=== PATIENT | male | born 1985 | race Asian ===

== ENCOUNTER 2019-04-25 13:23 | Emergency (ER) | payer OTHER ==
[~2019-04-25] VITALS: Ht 170.2 cm; Wt 107.3 kg
[2019-04-25 13:58] VITALS: Ht 170.2 cm; Wt 107.3 kg
[2019-04-25 16:53] VITALS: BP 126/96
== END 2019-04-25 16:53 | disposition home or self-care (01) ==
LOC: ED 13:23
DX: M79.641 Pain in right hand (principal)